=== PATIENT | male | born 1980 | race Hispanic/Latino ===

== ENCOUNTER 2018-01-24 13:42 | Emergency (ER) | payer OTHER ==
[2018-01-24] MEDS ORDERED: ORPHENADRINE CITRATE 30 MG/ML ML ONE (14:16)
[2018-01-24] MEDS ORDERED: KETOROLAC TROMETHAMINE 60 MG/2 ML VIAL ONE (14:16)
== END 2018-01-24 14:36 | disposition home or self-care (01) ==
LOC: EDH 13:42
DX: M54.5 Low back pain (principal); Z88.6 Allergy status to analgesic agent; Z72.0 Tobacco use
CPT/HCPCS: 96372 ×2; 99284; J1885; J2360

== ENCOUNTER 2018-01-31 14:23 | Emergency (ER) | payer SELFPAY | END 2018-01-31 15:34 | disposition home or self-care (01) | LOC: EDH 14:23 | DX: M54.5 Low back pain (principal); M62.830 Muscle spasm of back; Z88.5 Allergy status to narcotic agent; Z72.0 Tobacco use | CPT/HCPCS: 99281 ==